=== PATIENT | male | born 1995 | race Caucasian/White ===

== ENCOUNTER 2024-11-02 22:15 | Emergency (ER) | payer SELFPAY ==
[2024-11-02] MEDS ORDERED: NA CHLORIDE 0.9% 1,000 ML ONE (22:43)
[2024-11-02 23:07] LABS: Absolute Lymphocytes (CBC) 4.1 K/uL (0.7-4.9); Hematocrit 44.8 % (39.6-49.0); Hemoglobin 15.4 g/dL (13.6-17.9); MCH 29.1 pg (27.0-35.0); MCHC 34.4 g/dL (32.0-36.0); MCV 84.7 fL (80-100); MPV 8.5 fL (7.6-11.3); Nucleated RBC Absolute Count 0.0 (0-0); Nucleated Red Blood Cells % 0.1 % (0-0); RBC Red Blood Cell Count 5.30 M/uL (4.33-5.43); White Blood Count 10.00 thou/uL (4.3-10.9)
[2024-11-02 23:14] LABS: Anion Gap 8.7 mEq/L (5.0-15.0); BUN Blood Urea Nitrogen 12.0 mg/dL (7-18); Glucose Level 322.0 mg/dL (74-106); Potassium 3.7 mEq/L (3.5-5.1)
--- NOTE | 2024-11-02 23:47 | ER ---
Nurse's Notes [facility] Name: Rik Gray Age: 29 yrs Sex: Male : 1995 Arrival Date: 11/02/2024 Time: 22:15 Bed 19 Private MD: Diagnosis: Acute tonsillitis, unspecified Presentation: 11/02 22:23 Chief complaint: Patient states: FEELING COLD, SORE THROAT, FATIGUE. OUT OF INSULIN FOR ha1 6 MONTH. 22:23 Coronavirus screen: Client denies travel out of the [place] in the last 14 days. Ebola ha1 Screen: No symptoms or risks identified at this time. Initial Sepsis Screen: Does the patient meet any 2 criteria? No. Patient's initial sepsis screen is negative. Does the patient have a suspected source of infection? No. Patient's initial sepsis screen is negative. Onset of symptoms was November 02, 2024. 22:23 Method Of Arrival: Ambulatory ha1 22:23 Acuity: EMERSON 3 ha1 23:12 Risk Assessment: Do you want to hurt yourself or someone else? Patient reports no al5 desire to harm self or others. Triage Assessment: 22:23 General: Appears uncomfortable, Behavior is calm, cooperative. Pain: Complains of pain ha1 in SORE THROAT Pain currently is 4 out of 10 on a pain scale. Neuro: Level of Consciousness is awake, alert, obeys commands, Oriented to person, place, time, situation. Cardiovascular: Capillary refill < 3 seconds Patient's skin is warm and dry. Respiratory: Airway is patent Respiratory effort is even, unlabored, Respiratory pattern is regular, symmetrical. Musculoskeletal: Circulation, motion, and sensation intact. Range of motion: intact in all extremities. Historical: - Allergies: 22:47 No Known Allergies; ha1 - PMHx: 22:47 Diabetes mellitus; ha1 - Immunization history:: Adult Immunizations up to date. - Infectious Disease History:: Denies. - Social history:: Smoking status: Patient denies any tobacco usage or history of. Screenin:35 [facility] ED Fall Risk Assessment (Adult) History of falling in the last 3 months, ss12 including since admission No falls in past 3 months (0 pts) Confusion or Disorientation No (0 pts) Intoxicated or Sedated No (0 pts) Impaired Gait No (0 pts) Mobility Assist Device Used No (0 pt) Altered Elimination No (0 pt) Score/Fall Risk Level 0 - 2 = Low Risk Oriented to surroundings, Maintained a safe environment, Educated pt \T\ family on fall prevention, incl call for assistance when getting out of bed, Assessed \T\ reinforced patient's understanding of fall precautions. Abuse screen: Denies threats or abuse. Denies injuries from another. Nutritional screening: No deficits noted. Tuberculosis screening: No symptoms or risk factors identified. Assessment: 22:30 General: Appears in no apparent distress. comfortable, Behavior is calm, quiet. Pain: ss12 Denies pain. Neuro: No deficits noted. Level of Consciousness is awake, alert, obeys commands, Oriented to person, place, time, situation. Cardiovascular: No deficits noted. Patient's skin is warm and dry. Respiratory: No deficits noted. Airway is patent Respiratory effort is even, unlabored. Respiratory: Breath sounds are clear bilaterally. GI: No deficits noted. Abdomen is flat, non-distended. : No deficits noted. No signs and/or symptoms were reported regarding the genitourinary system. EENT: No deficits noted. Throat is clear. Derm: No deficits noted. Skin is intact, Skin is dry, Skin is pink, warm \T\ dry. normal. Musculoskeletal: No deficits noted. No signs and/or symptoms reported regarding the musculoskeletal system. 23:45 Reassessment: Patient appears in no apparent distress at this time. Patient and/or ss12 family updated on plan of care and expected duration. Pain level reassessed. Patient is alert, oriented x 3, equal unlabored respirations, skin warm/dry/pink. Vital Signs: 22:23 BP 145 / 97; Pulse 70; Resp 18 S; Temp 97.9(O); Pulse Ox 99% on R/A; Weight 104.33 kg; ha1 Height 5 ft. 7 in. ; 23:00 BP 134 / 85; Pulse 77; Resp 18; Pulse Ox 97% on R/A; al5 22:23 Body Mass Index 36.02 (104.33 kg, 170.18 cm) ha1 ED Course: 22:18 Patient arrived in ED. im 22:23 En Sal[facility]C [facility]. dr5 22:23 Juan Bingham MD is Attending Physician. dr5 22:30 Caitlin Wright, RN is Primary Nurse. al5 22:33 Inserted saline lock: 18 gauge in right antecubital area, using aseptic technique. ts3 Blood collected. Flushed with 10 mL NS. 22:43 Triage completed. ha1 22:47 Initial lab(s) drawn, by laboratory animal caretaker, sent to lab. ts3 22:47 Strep swab sent to lab. ts3 23:00 Arm band placed on right wrist. Patient placed in the treatment room, in view of staff al5 members, on pulse oximetry. 23:12 No provider procedures requiring assistance completed. al5 23:12 Patient has correct armband on for positive identification. Bed in low position. Call al5 light in reach. Side rails up X 1. Provided Education on: plan of care. 23:58 IV discontinued, intact, bleeding controlled, No redness/swelling at site. Pressure ss12 dressing applied. Administered Medications: 22:48 Drug: NS 0.9% IV 1000 ml IV at 1000 ml once; to be given as a bolus over 60 minutes ss12 Route: IV; Rate: 1000 ml; Site: right antecubital; 23:48 Follow up: IV Status: Completed infusion; IV Intake: 1000ml ss12 Medication: 23:12 VIS not applicable for this client. al5 Intake: 23:48 IV: 1000ml; Total: 1000ml. ss12 Outcome: 23:47 Discharge ordered by . dr5 23:57 Discharged to home ambulatory, ss12 23:57 Condition: stable 23:57 Discharge instructions given to patient, Instructed on discharge instructions, follow up and referral plans. Demonstrated understanding of instructions, follow-up care, medications, Prescriptions given X 1, 23:58 Patient left the ED. ss12 Signatures: Jerica Zheng, RN RN ha1 Felicita Mckeon Caitlin Wright, RN RN al5 En Salazar, EDITOR CONTINUITY AND SCRIPT-C EDITOR CONTINUITY AND SCRIPT-5 Mendy Smith ts3 Vanesa Alexis RN RN ss12
--- NOTE | 2024-11-02 23:48 | EDPHYS ---
Physician Documentation [facility] Name: Rik Gray Age: 29 yrs Sex: Male : 1995 Arrival Date: 11/02/2024 Time: 22:15 Bed 19 Private MD: ED Physician Juan Bingham HPI: 11/02 23:43 This 29 yrs old Male presents to ER via Ambulatory with complaints of High dr5 Blood Sugar, Sore Throat, Shortness Of Breath, fatigue. 23:43 Onset: The symptoms/episode began/occurred acutely. Patient is a 28-year-old male with dr5 history of diabetes coming in with sore throat and elevated blood sugars this been going on for the past 2 days. Patient reports that he has stopped taking his Trulicity due to expense for the past 6 months. Patient reports that he recently bought a glucometer and his blood sugars have been running in the 400s. Patient states that his throat lew when he tries to swallow.. Historical: - Allergies: 22:47 No Known Allergies; ha1 - PMHx: 22:47 Diabetes mellitus; ha1 - Immunization history:: Adult Immunizations up to date. - Infectious Disease History:: Denies. - Social history:: Smoking status: Patient denies any tobacco usage or history of. ROS: 23:43 Constitutional: as per hpi dr5 Exam: 23:43 Constitutional: This is a well developed, well nourished patient who is awake, alert, dr5 and in no acute distress. Head/Face: Normocephalic, atraumatic. Eyes: Pupils equal round and reactive to light, extra-ocular motions intact. Lids and lashes normal. Conjunctiva and sclera are non-icteric and not injected. Cornea within normal limits. Periorbital areas with no swelling, redness, or edema. 23:43 Chest/axilla: Normal chest wall appearance and motion. Nontender with no deformity. No lesions are appreciated. Cardiovascular: Regular rate and rhythm with a normal S1 and S2. Normal PMI, no JVD. No pulse deficits. Respiratory: Lungs have equal breath sounds bilaterally, clear to auscultation. No rales, rhonchi or wheezes noted. No increased work of breathing, no retractions or nasal flaring. Abdomen/GI: Soft, non-tender, non-distended Back: No spinal tenderness. No costovertebral tenderness. Full range of motion. Skin: Warm, dry with normal turgor. Normal color with no rashes, no lesions, and no evidence of cellulitis. MS/ Extremity: Pulses equal, no cyanosis. Neurovascular intact. Full, normal range of motion. Neuro: Awake and alert, GCS 15, oriented to person, place, time, and situation. Cranial nerves II-XII grossly intact. Motor strength 5/5 in all extremities. Sensory grossly intact. Cerebellar exam normal. Normal gait. 23:43 ENT: External ear(s): are unremarkable, Ear canal(s): are normal, TM's: are normal, Nose: is normal, Mouth: is normal, Posterior pharynx: Airway: normal, no evidence of obstruction, Tonsils: enlarged on the right, enlarged on the left, with exudate, Uvula: normal, swelling, is not appreciated, Vital Signs: 22:23 BP 145 / 97; Pulse 70; Resp 18 S; Temp 97.9(O); Pulse Ox 99% on R/A; Weight 104.33 kg; ha1 Height 5 ft. 7 in. ; 23:00 BP 134 / 85; Pulse 77; Resp 18; Pulse Ox 97% on R/A; al5 22:23 Body Mass Index 36.02 (104.33 kg, 170.18 cm) ha1 MDM: 22:23 Medical Screening Exam initiated dr5 23:43 Differential diagnosis: hyperglycemia, hypoglycemic episode, Strep throat, tonsillitis. dr5 Data reviewed: vital signs, nurses notes, lab test result(s), CBC, white blood cell count, hemoglobin, hematocrit, platelets, electrolytes, sodium, potassium, chloride, serum bicarbonate, BUN, creatinine, serum glucose, Strep Negative. Consideration of Admission/Observation Escalation of care including admission/observation considered. Admission was considered if patient found to be in diabetic ketoacidosis. Care significantly affected by the following chronic conditions: Diabetes. Care significantly affected by the following Social Determinants of Health: Poor access to healthcare and/or lack of insurance, Poor access to transportation, Problems related to employment. Counseling: I had a detailed discussion with the patient and/or guardian regarding the historical points, exam findings, and any diagnostic results supporting the discharge/admit diagnosis, the presence of at least one elevated blood pressure reading (>120/80) during this emergency department visit, lab results, the need for outpatient follow up, for definitive care, an ENT specialist, a family practitioner, School Teacher, to return to the emergency department if symptoms worsen or persist or if there are any questions or concerns that arise at home. Special discussion: I have referred the patient to see his PCP for further evaluation of high blood pressure. Based on the history and exam findings, there is no indication for further emergent testing or inpatient evaluation. School Teacher. ED course: Will treat patient with amoxicillin for tonsillitis. Recommend patient continue taking metformin at home despite giving him abdominal cramping. Recommended patient follow-up with my CHN for assistance on getting medications filled. All questions answered. Strict ER precautions given. Patient feels better after fluids.. 11/02 22:40 Order name: Group A Streptococcus Rapid; Complete Time: 23:29 dr5 11/02 22:40 Order name: CBC with Diff; Complete Time: 23:29 dr5 11/02 22:40 Order name: BMP; Complete Time: 23:17 dr5 11/02 22:42 Order name: Glucose, Ancillary Testing; Complete Time: 22:42 EDMS 11/02 23:26 Order name: Throat Culture EDMS Administered Medications: 22:48 Drug: NS 0.9% IV 1000 ml IV at 1000 ml once; to be given as a bolus over 60 minutes ss12 Route: IV; Rate: 1000 ml; Site: right antecubital; 23:48 Follow up: IV Status: Completed infusion; IV Intake: 1000ml ss12 Disposition: 11/03 03:48 Co-signature as Attending Physician, Juan Bingham MD I agree with the assessment sp4 and plan of care. I reviewed the patient's care provided by the Advanced Practice Provider and agree with the diagnosis and treatment plan. Disposition Summary: 11/02/24 23:47 Discharge Ordered Notes: Location: Home dr5 Condition: Stable dr5 Diagnosis - Acute tonsillitis, unspecified dr5 Followup: dr5 - With: Emergency Department - When: As needed - Reason: Worsening of condition Followup: dr5 - With: Private Physician - When: 1 - 2 days - Reason: Recheck today's complaints, Continuance of care, Re-evaluation by your physician Discharge Instructions: - Discharge Summary Sheet dr5 - Tonsillitis dr5 Forms: - Medication Reconciliation Form dr5 - Antibiotic Education dr5 - Patient Portal Instructions dr5 - Leadership Thank You Letter dr5 Prescriptions: - Amoxicillin 500 mg Oral capsule - take 1 capsule ORAL route every 12 hours for 7 days; 14 tablet; Refills: 0, dr5 Product Selection Permitted Signatures: Dispatcher [employer] EDJerica Cancino, RN RN ha1 Juan Bingham MD MD sp4 En Salazar, SHOE LAY OUT PLANNER-C SHOE LAY OUT PLANNER-Cdr5 Vanesa Alexis RN RN ss12 Corrections: (The following items were deleted from the chart) 11/02 22:40 22:40 Group A Streptococcus Rapid Sc+I.LAB.BRZ ordered. EDMS EDMS 22:40 22:40 CBC+H.LAB.BRZ ordered. EDMS EDMS 22:40 22:40 BASIC METABOLIC PANEL+C.LAB.BRZ ordered. EDMS EDMS
[2024-11-03 00:15] VITALS: TEMP 97.9
[2024-11-03 00:16] VITALS: BP 134/85; O2SAT 97
== END 2024-11-02 23:58 | disposition home or self-care (01) ==
LOC: ER 22:15
DX: J03.90 Acute tonsillitis, unspecified (principal); E11.9 Type 2 diabetes mellitus without complications
CPT/HCPCS: 36415; 80048; 82947; 85025; 87070; 96360; 99284; J7030